=== PATIENT | male | born 1975 | race Caucasian/White ===

== ENCOUNTER 2022-10-06 11:04 | Emergency (ER) | payer OTHER ==
[2022-10-06 11:20] VITALS: RESP 18; BMI 37.1
[2022-10-06 12:23] LABS: HEMOGLOBIN 17.2 G/dL (11.7-16.9); MCH 36.3 pg (25.7-33.7); MCHC 36.5 g/dl (32.0-35.9); MEAN CELL VOLUME 99.4 fl (80-96); MEAN PLT VOLUME 8.5 fl (7.5-11.1); PLATELET COUNT 189.2 10^3/uL (134-434); RBC 4.73 10^6/uL (4.00-5.60); RDW 14.6 % (11.9-15.9); WHITE BLOOD COUNT 7.2 10^3/uL (4.0-10.8)
[2022-10-06 12:37] LABS: ALBUMIN 3.3 g/dl (3.4-5.0); BILIRUBIN,TOTAL 2.3 mg/dl (0.2-1); CALCIUM 8.4 mg/dl (8.5-10.1); CREATININE 1.5 mg/dl (0.6-1.3); POTASSIUM 3.6 mmol/L (3.5-5.1); TOT PROT 6.3 g/dl (6.4-8.2)
[2022-10-06] MEDS ORDERED: SODIUM CHLORIDE 1,000 ML IV STA ×3 (12:54→20:17)
[2022-10-06 13:10] LABS: EPITHELIAL CELLS MODERATE /hpf; URINE HYALINE CAST 60-100 /lpf
[2022-10-06 13:40] LABS: SGOT/AST 491.7 U/L (15-37); SGPT/ALT 295.9 U/L (7-52)
[2022-10-06 13:54] LABS: PLATELET ESTIMATE ADEQUATE
[2022-10-06 15:44] LABS: ALBUMIN 3.1 g/dl (3.4-5.0); BILIRUBIN,TOTAL 2.5 mg/dl (0.2-1); TOT PROT 5.8 g/dl (6.4-8.2)
[2022-10-06 19:19] LABS: ALBUMIN 2.9 g/dl (3.4-5.0); BILIRUBIN,TOTAL 2.7 mg/dl (0.2-1); CALCIUM 7.5 mg/dl (8.5-10.1); CREATININE 0.9 mg/dl (0.6-1.3); POTASSIUM 4.1 mmol/L (3.5-5.1); TOT PROT 5.5 g/dl (6.4-8.2)
[2022-10-06] MEDS ORDERED: chlordiazePOXIDE HCL 25 MG CAPSULE PO ONE (20:20)
[2022-10-06] MEDS ORDERED: FOLIC ACID INJECTION - 1 MG, THIAMINE HCL 100 MG, MULTIVIT INJECTION ADULT 10 ML in SOD... IVPB ONE (20:21)
[2022-10-06] MEDS ORDERED: chlordiazePOXIDE HCL 25 MG CAPSULE ONE (20:23)
[2022-10-06] MEDS ORDERED: THIAMINE HCL 200 MG/2 ML VIAL ONE (20:27)
[2022-10-06] MEDS ORDERED: FOLIC ACID 5 MG/1 ML ONE (20:30)
[2022-10-06] MEDS ORDERED: MULTIVIT INJ. ADULT COMBO WITH VIT K 1 COMBO 10 ML VIAL IV ONE (20:30)
[2022-10-06 22:52] VITALS: BP 144/107; PULSE 118; TEMP 99.2
[2022-10-06 23:44] LABS: ALBUMIN 2.8 g/dl (3.4-5.0); BILIRUBIN,TOTAL 2.3 mg/dl (0.2-1); CALCIUM 7.3 mg/dl (8.5-10.1); CREATININE 0.7 mg/dl (0.6-1.3); POTASSIUM 3.9 mmol/L (3.5-5.1); TOT PROT 5.2 g/dl (6.4-8.2)
== END 2022-10-07 00:46 | disposition home or self-care (01) ==
LOC: FER 11:04
PROC: 3E033GC Introduction of Other Therapeutic Substance into Peripheral Vein, Percutaneous Approach (ICD-10-PCS; principal; 2022-10-06)
PROC: 3E033GC Introduction of Other Therapeutic Substance into Peripheral Vein, Percutaneous Approach (ICD-10-PCS; 2022-10-06)
PROC: 3E033GC Introduction of Other Therapeutic Substance into Peripheral Vein, Percutaneous Approach (ICD-10-PCS; 2022-10-06)
PROC: 3E033GC Introduction of Other Therapeutic Substance into Peripheral Vein, Percutaneous Approach (ICD-10-PCS; 2022-10-06)
PROC: 3E0337Z Introduction of Electrolytic and Water Balance Substance into Peripheral Vein, Percutaneous Approach (ICD-10-PCS; 2022-10-06)
PROC: 3E0337Z Introduction of Electrolytic and Water Balance Substance into Peripheral Vein, Percutaneous Approach (ICD-10-PCS; 2022-10-06)
PROC: 3E033GC Introduction of Other Therapeutic Substance into Peripheral Vein, Percutaneous Approach (ICD-10-PCS; 2022-10-07)
PROC: 3E033GC Introduction of Other Therapeutic Substance into Peripheral Vein, Percutaneous Approach (ICD-10-PCS; 2022-10-07)
PROC: 3E033GC Introduction of Other Therapeutic Substance into Peripheral Vein, Percutaneous Approach (ICD-10-PCS; 2022-10-07)
PROC: 3E033GC Introduction of Other Therapeutic Substance into Peripheral Vein, Percutaneous Approach (ICD-10-PCS; 2022-10-07)
DX: R07.89 Other chest pain (principal); E87.1 Hypo-osmolality and hyponatremia; R11.2 Nausea with vomiting, unspecified; R79.89 Other specified abnormal findings of blood chemistry
CPT/HCPCS: 36415; 71046-TC-FY; 71275-TC; 80053; 81003; 81015; 83690; 84484; 85025; 87086; 93005; 99285-25; Q9967